=== PATIENT | male | born 1985 | race Caucasian/White ===

== ENCOUNTER 2021-10-08 12:06 | Emergency (ER) | payer MEDICAID ==
[~2021-10-08] VITALS: Ht 154.9 cm; Wt 91.0 kg
[2021-10-08] MEDS ORDERED: KETOROLAC 30MG/ML VIAL IV STA (12:28)
[2021-10-08] MEDS ORDERED: SODIUM CHLORIDE 0.9% 1,000 ML IV ONE (12:30)
[2021-10-08 13:55] LABS: BASOPHILS % 0.2 % (0.0-2.0); EOSINOPHILS % 0.1 % (0.0-5.0); HEMOGLOBIN. 14.6 g/dL (14.0-18.0); LYMPHOCYTES % 8.2 % (20.0-50.0); MEAN CORPUSCULAR HEMOGLOBIN 31.5 pg (28.0-32.0); MEAN CORPUSCULAR VOLUME 92.6 fL (80.0-94.0); MEAN PLATELET VOLUME 8.1 fl (7.4-10.4); MONOCYTES % 7.2 % (2.0-8.0); NEUTROPHILS % 84.3 % (40.0-76.0); PLATELET 210 x1000/uL (130-400); RED BLOOD CELL COUNT 4.64 mill/uL (4.7-6.1); RED CELL DISTRIBUTION WIDTH 13.7 % (11.6-14.6)
[2021-10-08 14:04] LABS: CHLORIDE 104 mEq/L (98-107)
[2021-10-08 14:08] LABS: ETHANOL BLOOD < 10 mg/dL
[2021-10-08 14:09] VITALS: BP 136/74
[2021-10-08 14:12] LABS: CREATINE KINASE 212 IU/L (39-308)
[2021-10-08] MEDS ORDERED: LORAZEPAM 2MG/ML CPJ IV ONE (14:45)
[2021-10-08] MEDS ORDERED: CHLORDIAZEPOXIDE 25MG CAPSULE PO ONE (15:15)
[2021-10-08] MEDS ORDERED: CHLO25CA10 MT (15:56)
== END 2021-10-08 20:56 | disposition home or self-care (01) ==
LOC: ER 12:13
DX: F10.239 Alcohol dependence with withdrawal, unspecified (principal); Y90.0 Blood alcohol level of less than 20 mg/100 ml; Z87.891 Personal history of nicotine dependence; F12.10 Cannabis abuse, uncomplicated
CPT/HCPCS: 36415; 71045; 80053; 80320; 82550; 83605; 83690; 85025; 93005; 96361; 96374; 96375; 99285; J1885; J2060; J7030; G0480